=== PATIENT | female | born 1980 | race American Indian/Alaskan Native ===

== ENCOUNTER 2020-07-18 10:51 | Day surgery (SDC) | payer OTHER ==
[2020-07-13 11:02] LABS: Basophils % (Auto) 0.8 % (0.0-1.8); Eosinophils # (Auto) 0.4 K/mm3 (0.0-0.4); Eosinophils % (Auto) 9.4 % (0.0-4.3); Hematocrit 39.1 % (30.3-42.9); Hemoglobin 12.8 gm/dl (10.1-14.3); Lymphocytes # (Auto) 1.5 K/mm3 (1.2-5.4); Lymphocytes % (Auto) 37.3 % (13.4-35.0); Mean Corpuscular HGB Conc 33 % (30-34); Mean Corpuscular Volume 86 fl (79-97); Monocytes # (Auto) 0.5 K/mm3 (0.0-0.8); Monocytes % (Auto) 12.8 % (0.0-7.3); Platelet Count 273 K/mm3 (140-440); Red Blood Count 4.55 M/mm3 (3.65-5.03)
--- NOTE | 2020-07-13 11:54 | Anesthesia Consultation ---
Anesthesia Consult and Med Hx Date of service: 07/18/20 - Airway Anesthetic Teeth Evaluation: Good ROM Head & Neck: Adequate Mental/Hyoid Distance: Adequate Mallampati Class: Class II Intubation Access Assessment: Good - Pre-Operative Health Status ASA Pre-Surgery Classification: ASA3 Proposed Anesthetic Plan: General Nerve Block: TAP - Pulmonary Hx Smoking: Yes Hx Asthma: No COPD: No Hx Pneumonia: No Hx Sleep Apnea: No - Cardiovascular System Hx Hypertension: Yes (Undiagnosed. "White coat") Hx Pacemaker: No Hx Heart Murmur: Yes - Central Nervous System Hx Seizures: No Hx Back Pain: Yes (AND NECK PAIN) Hx Psychiatric Problems: No - Endocrine Hx End Stage Renal Disease: No Hx Cirrhosis: No Hx Liver Disease: No - Hematic Hx Anemia: Yes Hx Sickle Cell Disease: No - Other Systems Hx Alcohol Use: Yes (WINE 3XW) Hx Substance Use: No Hx Cancer: No - Additional Comments Anesthesia Medical History Comments: HTN-I asked her to monitor her BPs between now and DOS
[~2020-07-18 10:51] MED LIST: ACETAMINOPHEN 500 MG TAB PO ONE; CELECOXIB 200 MG CAP PO NR; GABAPENTIN 300 MG CAP PO NR; LACTATED RINGERS 1,000 ML IV SCH; MAGNESIUM OXIDE 400 MG TAB PO ONE; MIDAZOLAM 2 MG/2 ML INJ IV NR; fentaNYL 100 MCG/2 ML INJ IV ONE
[2020-07-18] MEDS ORDERED: NEOMY 40 MG/POLYMYXIN B 200,000 UNITS/ML (GU) AMPULE IR ONE ×2 (10:55→13:57)
[2020-07-18] MEDS ORDERED: MAGNESIUM OXIDE 400 MG TAB PO ONE (11:15)
[2020-07-18] MEDS ORDERED: ACETAMINOPHEN 500 MG TAB ONE (11:15)
--- NOTE | 2020-07-18 11:36 | Short Stay Summary ---
Short Stay Documentation Date of service: 07/18/20 Narrative H&P: 40-year-old -0-0-2 with a history of symptomatic uterine fibroid and dysfunctional uterine bleeding. The patient reports heavy vaginal bleeding with her menses and the passage of clots. She had a pelvic ultrasound that demonstrated an enlarged uterus of 11.4 cm with multiple leiomyomas with the largest being 2.5 cm. The ultrasound also indicated findings of a left ovarian cyst 3.6 cm. The patient elected to undergo definitive surgical management. - History Principal diagnosis: Leiomyoma Past Medical History: other (Uterine fibroids) Past Surgical History: hernia repair Social history: - Allergies and Medications Current Medications: Allergies No Known Allergies Allergy (Verified 07/13/20 11:56) Home Medications Medication Instructions Recorded Confirmed Last Taken Type Vitamin C 1,000 mg PO DAILY 07/11/20 07/11/20 Unknown History Active Medications Celecoxib (Celecoxib 200 Mg Cap) 400 mg PO PREOP NR Stop: 07/18/20 19:00 Gabapentin (Gabapentin 300 Mg Cap) 600 mg PO PREOP NR Stop: 07/18/20 19:00 Lactated Ringer's (Lactated Ringers) 1,000 mls @ 125 mls/hr IV DIRECT LUPILLO Midazolam HCl (Midazolam 2 Mg/2 Ml Inj) 2 mg IV PREOP NR Stop: 07/18/20 23:59 - Physical exam General appearance: no acute distress Integumentary: no rash HEENT: Atraumatic Lungs: Clear to auscultation Breasts: deferred Heart: Regular rate Gastrointestinal: normal Female Genitourinary: deferred Rectal Exam: deferred - Brief post op/procedure progress note Date of procedure: 07/18/20 Pre-op diagnosis: Dysfunctional uterine bleeding; symptomatic uterine fibroids Post-op diagnosis: same Procedure: Robotic hysterectomy and bilateral salpingectomy Anesthesia: GETA Surgeon: IVY STROUD Estimated blood loss: minimal Pathology: list (Uterus, cervix, bilateral tubes) Specimen disposition: to lab Condition: stable - Hospital course Hospital course: The patient was admitted the day of surgery underwent a robotic hysterectomy bilateral salpingectomy. Please see operative note for details of surgery. Postoperative course was uneventful. - Disposition Condition at discharge: Good Disposition: DC-01 TO HOME OR SELFCARE Short Stay Discharge Plan Activity: other (Pelvic rest for 6 weeks) Diet: regular Additional Instructions: Schedule follow-up with Dr. Stroud in 4 weeks
[2020-07-18] MEDS ORDERED: fentaNYL 100 MCG/2 ML INJ ONE ×2 (11:49→12:07)
[2020-07-18] MEDS ORDERED: ceFAZolin/Water 2 GM/20 ML 2 GM/20 ML SYRINGE IV NR (12:00)
[2020-07-18] MEDS ORDERED: LIDOCAINE MPF (2%) 20 MG/1 ML VIAL 5 ML ONE (12:07)
[2020-07-18] MEDS ORDERED: propofoL 200 MG/20 ML VIAL IV ONE ×2 (12:07→14:55)
[2020-07-18] MEDS ORDERED: ROCURONIUM 50 MG/5 ML INJ IV ONE (12:07)
[2020-07-18] MEDS ORDERED: BUPIVACAINE/PF (0.25%) 2.5 MG/ML 30 ML VIAL INFILTRATI ONE (12:37)
[2020-07-18] MEDS ORDERED: fentaNYL 100 MCG/2 ML INJ IV SCH (13:00)
[2020-07-18] MEDS ORDERED: HYDROmorphone 1 MG/1 ML INJ ONE (13:31)
[2020-07-18] MEDS ORDERED: HYDROmorphone 1 MG/1 ML INJ IV PRN (13:36)
[2020-07-18] MEDS ORDERED: ONDANSETRON 4 MG/2 ML INJ IV PRN (13:36)
--- NOTE | 2020-07-18 13:36 | Anesthesia Day of Surgery ---
Anesthesia Day of Surgery - Day of Surgery Patient Examined: Yes Patient H&P Reviewed: Yes Patient is NPO: Yes
[2020-07-18] MEDS ORDERED: SODIUM CHLORIDE 0.9% IRRIG SOLN 2000 ML IR ONE (13:58)
[2020-07-18] MEDS ORDERED: SODIUM CHLORIDE 0.9% IRR 1,500 ML BOTTLE IR ONE (13:58)
[2020-07-18] MEDS ORDERED: ONDANSETRON 4 MG/2 ML INJ ONE (14:24)
[2020-07-18] MEDS ORDERED: NEOSTIGMINE 10MG/10 ML INJ MDV ONE (14:27)
[2020-07-18] MEDS ORDERED: GLYCOPYRROLATE 0.4 MG/2 ML INJ ONE (14:28)
[2020-07-18] MEDS ORDERED: dexAMETHasone 20 MG/5 ML VIAL ONE (14:30)
[2020-07-18] MEDS ORDERED: PHENYLEPHRINE/NS 1,000 MCG/10 ML SYRINGE (OR USE) IV ONE (14:32)
--- NOTE | 2020-07-18 14:43 | Operative Report ---
Operative Report Operative Report: Date of surgery: July 18, 2020 Preoperative diagnoses: Symptomatic uterine fibroids; dysfunctional uterine ble [facility] Postoperative diagnoses: Same as above Procedure: Robotic hysterectomy; bilateral salpingectomy Surgeon: Kaitlynn Severino M.D. Skin Former: Olena Broderick Anesthesia: Gen. endotracheal anesthesia Estimated blood loss: 25 mL Pathology: Uterus, cervix, bilateral tubes Indication: 40-year-old -0-0-2 with a history of symptomatic uterine fibroids and dysfunctional uterine bleeding. Patient elected to undergo definitive surgical management. Procedure: The patient was taken to the operating room and given general endotracheal anesthesia without complication after a time out was performed confirming the surgery and identity of the patient. She was prepped and draped in a normal sterile fashion. A bivalve speculum was placed in the patient's vagina and a single-tooth tenaculum placed on the anterior lip of the cervix. The uterus was sounded with the uterine sound. A stay suture with 0-vicryl was placed at 12 o'clock on the anterior cervix. A [employer] uterine manipulator was placed in the bivalve speculum was then removed. A warm laparotomy sponge was placed in the vagina. Attention was then turned to the patient's abdomen where a 12millimeter supra umbilical skin incision was then made. A Veress needle was placed and peritoneal entry was verified water-filled syringe. Insufflation of the peritoneal cavity was performed with CO2 gas. The 12 mm trocar was then placed under direct visualization. An additional 8 mm robotic trocar was placed on the patient's left and right lateral side just opposite of the supraumbilical trocar. An additional 5 mm right lateral trocar was then placed as the accessory port. The supraumbilical 12 mm trocar site was closed with the [place] [employer] device and 0-vicryl suture. The patient was then placed in steep Trendelenburg. The da Tomás robot was then engaged. A fenestrated forcep was placed in arm 2 and a vessel sealer was placed in arm 1. General survey of the abdomen and pelvis revealed a mildly enlarged uterus. No ovarian cysts were seen. The tubes were normal in appearance. The surgeon then transferred to the surgical console. The mesosalpinx was then isolated on the right. The vessel sealer was used to coagulate the mesosalpinx which was then transected. The tube was transected from the ovary. The tubo-ovarian ligament was then coagulated and transected. The round ligament was then coagulated and transected also. The vesicouterine peritoneum was then entered from the patient's right side. The uterine vessels were then coagulated with the vessel sealer. The vessels were then transected . Attention was then turned to the patient's left side where the tubo-ovarian ligament and mesosalpinx were again isolated coagulated and transected. The vesical peritoneum was then entered from the left and joined in the midline. Peritoneum was reflected off of the lower uterine segment. Uterine vessels were then coagulated and then transected. The blood supply to the uterus was adequately contained, a posterior colpotomy was made. The V care ring was visualized. Posterior colpotomy was created with the monopolar scissors. The incision was continued circumferentially until anterior colpotomy was made. The cervix and uterus were amputated from the vaginal cuff. The uterus was then removed along with the tubes bilaterally through the vagina and a warm laparotomy sponge was placed and maintain the pneumoperitoneum. The vaginal cuff was then closed in a running fashion with V lock suture. Irrigation of the pelvis was performed. Hemoblast was applied to the incision. The [employer] robot was undocked. The trocars were removed and the insuffliation was released. The skin was then reapproximated with 4-0 Monocryl. The tissue was sent to pathology which included the cervix, bilateral tubes and uterus. The patient was then successfully extubated. She was then taken to the recovery room in stable condition. All sponge laps and needle counts were correct x2.
--- NOTE | 2020-07-18 16:42 | Post Anesthesia Evaluation ---
- Post Anesthesia Evaluation Patient Participated: Yes Airway Patent: Yes Stable Respiratory Function: Yes Nausea/Vomiting: No Temp > 96.8F: Yes Pain Manageable: Yes Adequeate Hydration: Yes Anesthesia Complications: No Other Comments: Pain well controlled, no nausea/vomiting, ambulating and voiding without difficulty. OK for d/c to home.
[2020-07-18 17:18] VITALS: BP 156/94
== END 2020-07-18 17:55 | disposition home or self-care (01) ==
LOC: OR 10:51
PROVIDERS: ATTEND Obstetrics & Gynecology
DX: N93.8 Other specified abnormal uterine and vaginal bleeding (principal); D25.2 Subserosal leiomyoma of uterus; N72 Inflammatory disease of cervix uteri; N83.8 Other noninflammatory disorders of ovary, fallopian tube and broad ligament; N80.0 Endometriosis of uterus; I10 Essential (primary) hypertension; Z87.891 Personal history of nicotine dependence; Z87.442 Personal history of urinary calculi; Z87.440 Personal history of urinary (tract) infections; Z72.89 Other problems related to lifestyle; Z98.890 Other specified postprocedural states; Z86.2 Personal history of diseases of the blood and blood-forming organs and certain disorders involving the immune mechanism
CPT/HCPCS: 36415; 58554; 64488; 84703; 85025; 86850; 86900; 86901; 88307; A4217; J0690; J1100; J1170; J2250; J2370; J2405; J2704; J2710; J3010; J7120; S2900; 64450